=== PATIENT | female | born 1980 | race Caucasian/White ===

== ENCOUNTER → 2016-11-21 | Outpatient (CLI) | payer BC ==
--- NOTE | 2016-11-21 09:24 | CT ---
EXAMINATION TYPE: CT thoracic spine wo con DATE OF EXAM: 11/21/2016 9:09 AM COMPARISON: NONE HISTORY: back pain, compression fx CT DLP: 1198 mGycm Automated exposure control for dose reduction was used. FINDINGS: Alignment is anatomic. Vertebral body height is maintained at all levels with the exception of a lowe r thoracic segment which demonstrates a mild superior endplate compression deformity which appears ch ronic at the approximate level of T10 and T11. Neural foramina appear patent at all levels. No obvious disc herniation or canal stenosis although ev aluation the thecal sac and spinal canal limited by noncontrast CT scan. No significant degenerative disc disease. There is very mild degenerative disc disease involving the lower thoracic spine. Spina bifida occulta of the lower thoracic segment incidentally noted. No abnormal paraspinal soft tissue density. IMPRESSION: MILD SUPERIOR ENDPLATE COMPRESSION DEFORMITY INVOLVING A LOWER THORACIC VERTEBRAL SEGMENT APPEARS CHR ONIC BUT NO DIAGNOSTIC EVIDENCE TO SUGGEST CANAL STENOSIS. THERE IS CONCERN FOR DISC HERNIATION MRI C OULD BE OBTAINED FOR FURTHER EVALUATION. NO OBVIOUS HERNIATION SEEN BY NONCONTRAST CT SCAN.
== END ==
LOC: RADCTMAIN 08:44
PROVIDERS: ATTEND Family Medicine
DX: S22.010A Wedge compression fracture of first thoracic vertebra, initial encounter for closed fracture (principal)
CPT/HCPCS: 72128

== ENCOUNTER → 2018-10-05 | Outpatient (CLI) | payer BC ==
--- NOTE | 2018-10-09 11:22 | MM ---
Reason for exam: screening (asymptomatic). Baseline mammogram. History: Took hormonal contraceptives for 11 years beginning at age 16. Physical Findings: Nurse did not find any significant physical abnormalities on exam. MG 3D Screening Mammo W/Cad Bilateral CC and MLO view(s) were taken. The breast tissue is heterogeneously dense. This may lower the sensitivity of mammography. No suspicious abnormality. These results were verbally communicated with the patient and result sheet given to the patient on 10/05/18 ASSESSMENT: Negative, BI-RAD 1 RECOMMENDATION: Routine screening mammogram of both breasts in 1 year.
== END | disposition home or self-care (01) ==
LOC: RADMAMWWP 08:14
PROVIDERS: ATTEND Family Medicine
DX: Z12.31 Encounter for screening mammogram for malignant neoplasm of breast (principal)
CPT/HCPCS: 77063; 77067

== ENCOUNTER → 2022-10-15 | Outpatient (CLI) | payer BC ==
--- NOTE | 2022-10-15 15:17 | CT ---
EXAMINATION TYPE: CT cervical spine wo con, CT thoracic spine wo con DATE OF EXAM: 10/15/2022 COMPARISON: CT scan thoracic spine 11/21/2016 HISTORY: neck and upper back pain. pt states numbness in arms and hands. pt also states she fell down stairs recently. CT DLP: 329 (accession [id number]), 1092 (accession [id number]) mGycm Unenhanced CT of the cervical spine and thoracic spine was performed with bone and soft tissue window settings submitted. Coronal and sagittal reconstruction is obtained. There is normal alignment and prevertebral soft tissues. I do not see evidence for acute fracture or subluxation. No significant degenerative changes are present. The lung apices are clear IMPRESSION: No evidence for acute fracture or subluxation of the cervical spine.
== END | disposition home or self-care (01) ==
LOC: RADCTMAIN 14:30
PROVIDERS: ATTEND Family Medicine
DX: M62.81 Muscle weakness (generalized) (principal); R20.2 Paresthesia of skin
CPT/HCPCS: 72125; 72128